=== PATIENT | female | born 1960 | race Caucasian/White ===

== ENCOUNTER 2024-02-03 07:20 | Day surgery (SDC) | payer BC, OTHER ==
[2024-01-27 15:27] VITALS: BMI 34.0
[2024-02-03] MEDS ORDERED: PROPOFOL 160 ML ONE (07:27)
[2024-02-03] MEDS ORDERED: LIDOCAINE HCL/PF 2% SDV 5ML VIAL ONE (07:27)
[2024-02-03 09:20] VITALS: TEMP 97.8
[2024-02-03 09:22] VITALS: BP 102/64; PULSE 76; RESP 19
== END 2024-02-03 09:20 | disposition home or self-care (01) ==
LOC: FASU-ENDO 07:20
PROVIDERS: ATTEND Internal Medicine Gastroenterology
PROC: 0DBL8ZX Excision of Transverse Colon, Via Natural or Artificial Opening Endoscopic, Diagnostic (ICD-10-PCS; 2024-02-03)
PROC: 0DBN8ZX Excision of Sigmoid Colon, Via Natural or Artificial Opening Endoscopic, Diagnostic (ICD-10-PCS; 2024-02-03)
PROC: 0DBP8ZX Excision of Rectum, Via Natural or Artificial Opening Endoscopic, Diagnostic (ICD-10-PCS; 2024-02-03)
PROC: 0DBL8ZX Excision of Transverse Colon, Via Natural or Artificial Opening Endoscopic, Diagnostic (ICD-10-PCS; 2024-02-03)
PROC: 0DBK8ZX Excision of Ascending Colon, Via Natural or Artificial Opening Endoscopic, Diagnostic (ICD-10-PCS; principal; 2024-02-03 08:22)
DX: Z12.11 Encounter for screening for malignant neoplasm of colon (principal); D12.2 Benign neoplasm of ascending colon; D12.8 Benign neoplasm of rectum; K63.5 Polyp of colon; K57.30 Diverticulosis of large intestine without perforation or abscess without bleeding; Z83.719 Family history of colon polyps, unspecified
CPT/HCPCS: 88305-TC

== ENCOUNTER 2025-03-06 07:11 | Day surgery (SDC) | payer OTHER, BC ==
[2025-03-01 14:28] VITALS: BMI 34.9
[2025-03-06] MEDS ORDERED: PROPOFOL 240 ML ONE (08:10)
[2025-03-06 08:50] VITALS: TEMP 97.3
[2025-03-06 09:14] VITALS: BP 128/65; PULSE 78; RESP 18
== END 2025-03-06 09:15 | disposition home or self-care (01) ==
LOC: FASU-ENDO 07:11
PROVIDERS: ATTEND Internal Medicine Gastroenterology
PROC: 0DBL8ZZ Excision of Transverse Colon, Via Natural or Artificial Opening Endoscopic (ICD-10-PCS; 2025-03-06)
PROC: 0DBN8ZZ Excision of Sigmoid Colon, Via Natural or Artificial Opening Endoscopic (ICD-10-PCS; 2025-03-06)
PROC: 0DBK8ZZ Excision of Ascending Colon, Via Natural or Artificial Opening Endoscopic (ICD-10-PCS; principal; 2025-03-06 08:14)
DX: Z12.11 Encounter for screening for malignant neoplasm of colon (principal); Z86.0109 Personal history of other colon polyps; K57.30 Diverticulosis of large intestine without perforation or abscess without bleeding
CPT/HCPCS: 88305-TC